=== PATIENT | male | born 1940 | race Caucasian/White ===

== ENCOUNTER 2016-07-05 15:50 | Outpatient (CLI) | payer OTHER ==
--- NOTE | 2016-07-05 22:06 | RAD ---
A large calcaneal spur is present. Additionally, there is dense ossification at the insertion of the Achilles tendon onto the calcaneus. There may have been old tendinous damage here. The calcaneus it self appears intact with no sign of fracture. IMPRESSION: 1. Calcaneal spur. 2. Dense calcification of the distal Achilles tendon. POS: HOME
== END 2016-07-05 15:51 | disposition home or self-care (01) ==
LOC: BURRAD 15:50
PROVIDERS: ATTEND Podiatrist Foot & Ankle Surgery
DX: M25.774 Osteophyte, right foot (principal); M77.31 Calcaneal spur, right foot

== ENCOUNTER 2021-03-26 18:09 | Emergency (ER) | payer MEDICARE ==
[2021-03-26] MEDS ORDERED: EPINEPHrine 1 MG/ML VIAL ONE (18:30)
[2021-03-26] MEDS ORDERED: methylPREDNISolone Sod Succ/PF 125 MG/2 ML VIAL ONE (18:30)
[2021-03-26] MEDS ORDERED: diphenhydrAMINE 50 MG/ML VIAL ONE (18:30)
== END 2021-03-26 22:37 | disposition home or self-care (01) ==
LOC: BURERS 18:09
DX: T63.441A Toxic effect of venom of bees, accidental (unintentional), initial encounter (principal)
CPT/HCPCS: 93005; 96372; 96374; 96375; J0171; J1200; J2930